=== PATIENT | female | born 1970 | race Caucasian/White ===

== ENCOUNTER 2017-02-13 22:29 | Inpatient (IN) | payer OTHER ==
[~2017-02-13] VITALS: Ht 167.6 cm; Wt 73.7 kg
[2017-02-13 22:29] VITALS: BP 110/59; PULSE 73; RESP 16
--- NOTE | 2017-02-13 22:36 | ED.REPORT ---
HPI-Chest Pain 40 and Over Date of Service Feb 13, 2017 ED Provider: Ernie PrabhakarO. A 46 year old female with a history of anxiety and microscopic colitis presents to the ED via EMS with substernal chest pain onset one hour ago. The pain is described as "pressure" and "aching," rated 7/10 with radiation up to her jaw. Associated symptoms include nausea, diaphoresis, and SOB which has since resolved. The patient denies other symptoms. EMS found the patient with a BP of 111/69 and a pulse in the 70s. She was given Nitro x3 and 324mg ASA en route, which reduced her pain to a 3/10. Nursing Notes Stated Complaint: CHEST PRESSURE Chief Complaint: Chest Pain Nursing Notes Reviewed: Yes Allergies: Coded Allergies: Sulfa (Sulfonamide Antibiotics) (Verified Allergy, Unknown, Lip swelling, 02/13/17) General Time Seen by MD: 22:36 Chief Complaint Chest pain Hx Obtained From: Patient Arrived By: Ambulance Sudden in Onset?: Yes Onset Occurred: 1 - 4 hours ago Symptom Duration: Since onset Location: : Substernal Quality: Aching, Painful, Pressure Radiation: : Jaw Severity: Current: Pain level 7 out of 10 Severity: Maximum: Pain level 3 out of 10 Relieved by: Nitroglycerin - EMS x 3, OTC medications Recent Healthcare: No recent doctor visit Similar Sx Previous: No Past Medical History Past Medical History Microscopic colitis Anxiety Family History Father CABG at 74 years old Smoking History Former Smoker Social History Other Social History: Good social support, Lives with children Ambulatory Status Independent Review of Systems Review of Systems Note: + Jaw pain Constitutional: Denies: Fever Respiratory: Reports: Shortness of breath (Resolved), Denies: Non-productive cough Cardiovascular: Reports: Chest pain GI: Reports: Nausea, Denies: Diarrhea, Vomiting Skin: Reports Diaphoresis Complete sys rev & neg: except as marked. Physical Exam Initial Vital Signs Vital Signs (First) Date Time Temp Pulse Resp B/P Pulse Ox O2 Delivery O2 Flow Rate FiO2 02/13/17 22:29 36.9 73 16 110/59 Room Air 02/13/17 23:33 69 Initial VS: Reviewed Head / Eyes: Atraumatic, Normocephalic ENT: Conjunctiva normal, No scleral icterus Neck: Supple, Full range of motion Skin: Warm, Dry, No cyanosis Neurologic: Alert, Oriented, Nonfocal Psychiatric: Mood/affect normal, Behavior normal, Normal thought content General/Constitutional: Awake, Alert Respiratory / Chest: Breath sounds NL, Breath sounds = bilat, No respiratory distress Cardiovascular: Heart rate NL, Regular rhythm, Heart sounds NL Abdomen: Soft, Non-tender Rectal exam by Dr. Mtz. Result: Brown stool, heme negative. Lower Extremity / Pelvis / MS: No swelling, No edema Rectum / Perineum: Blood - occult heme -, No gross blood Interpretation & Diagnostics Lab Results Interpretation Result Diagram: 02/13/17222902/13/172229 Test 02/13/17 22:30 White Blood Count 11.8th/mm3 (3.8-10.1) Red Blood Count 4.20mil/mm3 (3.90-5.20) Hemoglobin 12.8g/dL (12.0-15.6) Hematocrit 38.5% (35.0-46.0) Mean Corpuscular Volume 91.7fL (81-100) Mean Corpuscular Hemoglobin 30.5pg (27.0-35.0) Mean Corpuscular Hemoglobin Concent 33.2% (32.0-37.0) Red Cell Distribution Width 12.3% (12.3-15.4) Platelet Count 309bil/L (150-400) Neutrophils (%) (Auto) 46.6% (40-74) Lymphocytes (%) (Auto) 35.6% (14-46) Monocytes (%) (Auto) 13.2% (4-12) Eosinophils (%) (Auto) 3.6% (0-5) Basophils (%) (Auto) 0.7% (0-3) Hold Purple Top Tube Received (Received) Activated Partial Thromboplast Time 25.5sec (22.8-33.0) Hold Blue Top Tube Received (Received) Total Bilirubin 0.2mg/dL (0.0-1.2) Aspartate Amino Transf (AST/SGOT) 23U/L (0-50) Alanine Aminotransferase (ALT/SGPT) 33U/L (0-32) Alkaline Phosphatase 58U/L (25-150) Total Protein 6.8g/dL (6.4-8.4) Albumin 4.4g/dL (3.4-5.0) Hold Red Top Tube Received (Received) Hold [place] Top Tube Received (Received) ECG Interpretation ECG Interpretation: Sinus rhythm rate 71 Time: 22:36 Interpreted by: ED physician ECG Interpretation: Sinus rhythm rate 69 No change No ischemic change Time: 00:31 Interpreted by: ED physician ECG Interpretation: Normal sinus rhythm, Rate 79. No acute ST changes. Time: 01:36 Interpreted by: ED physician X-Ray Chest Interpretation Chest Xray Interpretation: Normal x-ray View: Portable, 1 view Interpretation / Wet Read by: Wet read ED physician Re-Eval/Medical Decision Med Decision/Clinical Course HEART SCORE 3 This patient was sent out to me by Dr. Reveles pending her repeat troponin. Her second troponin came back elevated. Patient was pain-free for most of her time here but did develop some chest pain prior to my evaluation. She is given nitroglycerin and start on heparin, there are no acute EKG changes and her chest pain resolved. The patient will be admitted for her NSTEMI for further evaluation. Time of Eval: 23:56 Patient Status: Condition improved Re-Evaluation/Progress Note: Patient's pain has improved. Discussed with patient x-ray and lab results, diagnosis, and plan for discharge if repeat labs are normal. Follow-up and return to the ER instructions given. Patient agrees with plan for care and all questions were addressed. Time of Eval: 01:06 Patient Status: Condition improved Re-Evaluation/Progress Note: Pt rechecked by Dr. Mtz. Pt reported melena "on and off" for the last two days so a rectal exam was performed. Result: Brown stool, heme negative. She reports mild pain returned a few minutes ago, rate 1/10. Informed pt of need for admission. Pt understands and agrees with the plan for admission. All questions addressed. Time of Eval: 01:45 Re-Evaluation/Progress Note: Patient is now chest pain free. Consultation : Referral / Consult Name: Kike Salinas MD Consulted With: Hospitalist Call Returned at: 01:55 Meter Repairer: Will see patient, Agrees with eval, Agrees with plan, Accepts admit Counseled Regarding: Diagnosis, Lab results, Need for admission Discharge & Departure Primary Impression: NSTEMI (non-ST elevated myocardial infarction) Additional Impressions: Chest pain Chest pain type: unspecified Qualified Code: R07.9 - Chest pain, unspecified Elevated troponin Disposition: ADMITTED TO HOSPITAL Discharge Condition All VS Reviewed: Yes Condition: Stable Referrals: [facility] Care Transferred to: Dr Mtz Care Transferred at: 01:00 Scribe Attestation Portions of this note were transcribed by Michelle Orantes, and Tonny Bautista. I, Dr. Rodriguez and Dr. Mtz, personally performed the history , physical exam, and medical decision-making; I reviewed and confirmed the accuracy of the information in the transcribed note. Signed by: Michelle Orantes, and Tonny Bautista , Flex, 02/14/2017, 0183 copies to: [facility] Rich Rodriguez DO Feb 13, 2017 22:36 ARMINDA JOHNSTON Feb 13, 2017 22:46 Tonny Bautista Feb 14, 2017 01:11 Michelle Nelson Feb 14, 2017 02:01 Emiila Mtz MD Feb 14, 2017 04:02 Time of Eval: 23:56 Patient Status: Condition improved Re-Evaluation/Progress Note: Patient's pain has improved. Discussed with patient x-ray and lab results, diagnosis, and plan for discharge if repeat labs are normal. Follow-up and return to the ER instructions given. Patient agrees with plan for care and all questions were addressed. Time of Eval: 01:06 Patient Status: Condition improved Re-Evaluation/Progress Note: Pt rechecked by Dr. Mtz. Pt reported melena "on and off" for the last two days so a rectal exam was performed. Result: Brown stool, heme negative. She reports mild pain returned a few minutes ago, rate 1/10. Informed pt of need for admission. Pt understands and agrees with the plan for admission. All questions addressed. Time of Eval: 01:45 Re-Evaluation/Progress Note: Patient is now chest pain free. Consultation : Referral / Consult Name: Kike Salinas MD Consulted With: Hospitalist Call Returned at: 01:55 Meter Repairer: Will see patient, Agrees with eval, Agrees with plan, Accepts admit Counseled Regarding: Diagnosis, Lab results, Need for admission Discharge & Departure Primary Impression: NSTEMI (non-ST elevated myocardial infarction) Additional Impressions: Chest pain Chest pain type: unspecified Qualified Code: R07.9 - Chest pain, unspecified Elevated troponin Disposition: ADMITTED TO HOSPITAL Discharge Condition All VS Reviewed: Yes Condition: Stable Referrals: [facility] Scribe Attestation Portions of this note were transcribed by Mcihelle Orantes, and Tonny Bautista. I, Dr. Rodriguez and Dr. Mtz, personally performed the history , physical exam, and medical decision-making; I reviewed and confirmed the accuracy of the information in the transcribed note. Signed by: Arminda Johnston, Michelle Nelson, and Flex Torres, 02/14/2017, [id number] copies to: [facility] Rich Rodriguez DO Feb 13, 2017 22:36 ARMINDA JOHNSTON Feb 13, 2017 22:46 Tonny Bautista Feb 14, 2017 01:11 Michelle Nelson Feb 14, 2017 02:01 copies to: [facility] Rich Rodriguez DO Feb 13, 2017 22:36 ARMINDA JOHNSTON Feb 13, 2017 22:46 Tonny Bautista Feb 14, 2017 01:11 Michelle Nelson Feb 14, 2017 02:01
[2017-02-13 22:42] LABS: BASOPHILS % (AUTO) 0.7 % (0-3); EOSINOPHILS % (AUTO) 3.6 % (0-5); MONOCYTES % (AUTO) 13.2 % (4-12); Mean Corpuscular Hemoglobin 30.5 pg (27.0-35.0); Mean Corpuscular Volume 91.7 fL (81-100); NEUTROPHILS % (AUTO) 46.6 % (40-74); Platelet Count 309 bil/L (150-400)
[2017-02-13] MEDS ORDERED: LidocaineVisc 2%:Antacid 1:1 10 mL Syringe PO SCH (22:45)
[2017-02-13 23:02] LABS: TROPONIN T 0.01 ug/L (0.0-0.011)
[2017-02-13 23:13] LABS: Magnesium 1.7 mg/dL (1.6-2.6)
[2017-02-13 23:33] VITALS: BP 106/63; PULSE 69; RESP 18; O2SAT 69
[2017-02-13] MEDS: Ondansetron 2 mg/mL 2 mL Inj IVPUSH PRN (23:33)
[2017-02-14] VITALS (12 sets, daily range): BP systolic 97–120; BP diastolic 56–72; PULSE 68–89; RESP 17–22; O2SAT 96–99
[2017-02-14] MEDS ORDERED: Nitroglycerin 2% 1 Gm Ointment TOPICAL ONE ×2 (01:05→01:10)
[2017-02-14] MEDS ORDERED: Heparin 25K Unit/500mL 0.45 NS 25,000 UNIT in IV Premix 1 EACH IV ONE (01:05)
[2017-02-14] MEDS ORDERED: Heparin 5,000 Unit/mL Inj IVPUSH ONE (01:05)
[2017-02-14] MEDS ORDERED: 0.9% Sodium Chloride 1,000 ML IV ONE ×2 (01:10→10:40)
[2017-02-14] MEDS ORDERED: Potassium Chloride 20 mEq SR Tablet PO ONE (02:00)
[2017-02-14] MEDS ORDERED: Polyethylene Glycol (PEG) 17 Gm Powder PO PRN (02:20)
[2017-02-14] MEDS ORDERED: Senna-Docusate 8.6-50 mg Tablet PO PRN (02:20)
[2017-02-14] MEDS ORDERED: Alum-Mag Hydrox-Simeth 30 mL Suspension PO PRN (02:20)
[2017-02-14] MEDS ORDERED: Atropine 1 mg/10 mL (Code) Syringe IVPUSH PRN (02:20)
[2017-02-14] MEDS: 0.9% Sodium Chloride 1,000 ML IV SCH ×2 (03:30→13:04)
[2017-02-14 04:19] LABS: Magnesium 1.8 mg/dL (1.6-2.6)
--- NOTE | 2017-02-14 04:40 | PCM.HPMED ---
Subjective Date of Service Feb 14, 2017 Primary Provider: Admitting Physician: Kike Salinas MD Primary Care Physician: Wendy Castellanos Attending Physician: Kike Salinas MD Admit Status: From the Emergency Department Chief Complaint: Chest Pain History of Present Illness: 46yo woman with history of microscopic colitis, chronic diarrhea, significant intentional weight loss, distant smoking hx, presented to the ED via EMS with substernal chest pain onset at about 9pm. The pain is described as "pressure" and "aching," rated 7/10 with radiation up to her jaw. Associated symptoms included nausea, diaphoresis, and SOB which have since resolved. EMS found the patient with a BP of 111/69 and a pulse in the 70s. She was given Nitro x3 and 324mg ASA en route, which reduced her pain to a 3/10. At time of admit her pain had resolved to minor chest pressure and a headache. Review of Systems: Complete ROS is otherwise negative except as noted above in the HPI. Allergies Coded Allergies: Sulfa (Sulfonamide Antibiotics) (Verified Allergy, Unknown, Lip swelling, 02/13/17) Home Medications Med Rec not completed at time of admission. PMH Microscopic Colitis chronic diarrhea Obesity (resolved) Smoking Anxiety Depression Insomnia Surgical History Breast implants D and C Family History Father has CAD and is scheduled for a CABG in the near future Mother is a colon cancer survivor Social History Hx Alcohol Use: Yes Alcoholic Drinks Per Day: 4 GLASSES OF ON WEEKENDS Hx Substance Use: No Smoking Status: Former Smoker (quit 7 years ago) Exam Vital Signs Vital Sign - Last Date Time Temp Pulse Resp B/P Pulse Ox O2 Delivery O2 Flow Rate FiO2 02/14/17 03:20 76 02/14/17 02:26 113/68 02/14/17 02:06 22 96 Room Air 02/13/17 22:29 36.9 Intake and Output 02/13/17 02/13/17 02/14/17 Cumulative From/Thru 15:00 23:00 07:00 02/13/17 22:29 - 02/14/17 03:12 Intake Total 1000 ml 1000 ml Balance 1000 ml 1000 ml Intake IV Total 1000 ml 1000 ml Exam General: Alert, Oriented X3, Cooperative, No Acute Distress Head: Normocephalic, atraumatic. External ears normal. Eyes: PERRLA, EOMI. Anicteric sclerae. Mouth: Mouth Normal, Mucous Membranes Moist/[place] Neck: Neck supple with full range of motion. Chest & Lungs: Clear to auscultation bilaterally with no crackles, wheezes, or rhonchi. Cardiovascular: Regular Rate/Rhythm, Normal S1, Normal S2, No Murmurs/Rubs/ Gallops Abdomen: Non-tender, Non-distended, No masses, Normoactive bowel tones, Soft Musculoskeletal: Normal Range of Motion Extremities: No cyanosis/clubbing/edema bilaterally Neurological: Grossly Neurologically Intact, Cranial Nerves 2-12 Intact, Normal Speech Lab and Diagnostics Labs Laboratory Tests Test 02/13/17 22:30 02/14/17 00:10 02/14/17 03:02 White Blood Count 11.8th/mm3 (3.8-10.1) Red Blood Count 4.20mil/mm3 (3.90-5.20) Hemoglobin 12.8g/dL (12.0-15.6) Hematocrit 38.5% (35.0-46.0) Mean Corpuscular Volume 91.7fL (81-100) Mean Corpuscular Hemoglobin 30.5pg (27.0-35.0) Mean Corpuscular Hemoglobin Concent 33.2% (32.0-37.0) Red Cell Distribution Width 12.3% (12.3-15.4) Platelet Count 309bil/L (150-400) Neutrophils (%) (Auto) 46.6% (40-74) Lymphocytes (%) (Auto) 35.6% (14-46) Monocytes (%) (Auto) 13.2% (4-12) Eosinophils (%) (Auto) 3.6% (0-5) Basophils (%) (Auto) 0.7% (0-3) Hold Purple Top Tube Received (Received) Activated Partial Thromboplast Time 25.5sec (22.8-33.0) Hold Blue Top Tube Received (Received) Sodium Level 138mEq/L (134-144) 139mEq/L (134-144) Potassium Level 3.1mEq/L (3.5-5.2) 3.7mEq/L (3.5-5.2) Chloride Level 98mEq/L (97-108) 101mEq/L (97-108) Carbon Dioxide Level 24mmol/L (18-29) 24mmol/L (18-29) Blood Urea Nitrogen 20mg/dL (6-24) 17mg/dL (6-24) Creatinine 0.72mg/dL (0.57-1.00) 0.61mg/dL (0.57-1.00) Estimat Glomerular Filtration Rate 124mL/min (>59) 151mL/min (>59) Glucose Level 94mg/dL (60-99) 99mg/dL (60-99) Calcium Level 8.8mg/dL (8.5-10.1) 7.4mg/dL (8.5-10.1) Magnesium Level 1.7mg/dL (1.6-2.6) 1.8mg/dL (1.6-2.6) Total Bilirubin 0.2mg/dL (0.0-1.2) Aspartate Amino Transf (AST/SGOT) 23U/L (0-50) Alanine Aminotransferase (ALT/SGPT) 33U/L (0-32) Alkaline Phosphatase 58U/L (25-150) Troponin T 0.010ug/L (0.0-0.011) 0.309ug/L (0.0-0.011) 0.505ug/L (0.0-0.011) Total Protein 6.8g/dL (6.4-8.4) Albumin 4.4g/dL (3.4-5.0) Hold Red Top Tube Received (Received) Hold [place] Top Tube Received (Received) Thyroid Stimulating Hormone (TSH) 1.870uIU/mL (0.450-4.500) Result Diagram: 02/13/170 02/14/17 0302 X-Rays, CTs and MRIs CXR reveals no acute cardiopulmonary process 12-lead ECG EKG x2 reveals NSR without ST changes or any other signs of ischemia, rate of 79 Assessment & Plan 46yo woman with history of microscopic colitis, chronic diarrhea, significant intentional weight loss, distant smoking hx, presented to the ED via EMS with substernal chest pain onset at about 9pm. The pain is described as "pressure" and "aching," rated 7/10 with radiation up to her jaw. Associated symptoms included nausea, diaphoresis, and SOB which have since resolved. EMS found the patient with a BP of 111/69 and a pulse in the 70s. She was given Nitro x3 and 324mg ASA en route, which reduced her pain to a 3/10. EKG x2 were NSR without ischemic changes. At time of admit her pain had resolved to minor chest pressure and a headache. 1. NSTEMI, POA, with rising troponin, 0.010 to 0.309 to 0.505, nml EKGs, pain resolved with nitroglycerin. SUSAN score is 2, but elements of her history push it towards a 3: father has CAD, she was a smoker for several years, she used to have hyperlipidemia, but does report healthy levels for several years after losing considerable weight. -Cardiology consult ordered, please call Dr Conner, anticipating possible catheterization -Telemetry -Heparin drip, cardiac protocol -Metoprolol 25mg PO given once at 0315 -Atorvastatin 80mg PO given once at 0315 -Nitrostat and Morphine PRN -NPO -NS 80mls/hr IV 2. Headache, POA, likely secondary to Nitropaste -improved with Tylenol 650mg PO 3. Chronic Diarrhea, POA, stable, patient is followed closely by a GI doctor in [place] for her microscopic collitis. She did report possible melena in the ER, but heme occult test was negative. 4. Hypokalemia, POA, repleted once in the ED with 40meq PO, second lab in normal limits, 3.7 -K/Mg repletion protocol in place PRN medications available for nausea, heartburn, constipation: Ondansetron, Maalox, Senna, Miralax Patient is admitted under inpatient status with expected length of stay greater than 2 midnights due to severity of presenting symptoms, risk of adverse event, and complexity of treatment plan. Pain Evaluation: Adequate Pain Control GI Prophylaxis: Not indicated VTE Prophylaxis: SCDs, Other (Heparin drip, cardiac protocol) Resuscitation Status: CPR: Attempt Resuscitation Attending Statement The patient was seen and examined together with Dr. Bravo on 02/14 and I agree with the history, exam and plan as outlined in the note above. Franki Bravo DO Feb 14, 2017 04:40 Kike Salinas MD Feb 14, 2017 05:24
--- NOTE | 2017-02-14 06:12 | NUR ---
Admit note: Pt received into 2013 at 0245 per cart from ED. Pt was able to stand and step onto scale. denies any SOB or chest pressure or pain does c/o headache. Heparin gtt infusing per cardiac protocol. Pt was given tylenol for headache. Tele shows sinus rhythm.
[2017-02-14] MEDS: Ondansetron 2 mg/mL 2 mL Inj IVPUSH PRN ×3 (07:31→08:42)
[2017-02-14] MEDS: Sodium Chloride LOK Flush 10 mL Syringe IVFLUSH SCH ×5 (08:43→22:15)
[2017-02-14] MEDS ORDERED: ProchlorPERazine 5 mg/mL 2 mL Inj IVPUSH ONE (09:10)
--- NOTE | 2017-02-14 09:10 | DRSVH ---
PROCEDURE: X-RAY CHEST ONE VIEW, PORTABLE ([id number]) INDICATIONS: chest pressure, radiates to back and jaw TECHNIQUE: One view of the chest was acquired. COMPARISON: None. FINDINGS: Surgical changes and devices: None. Lungs and pleura: No pleural effusions or pneumothorax. Lungs are clear. Mediastinum: Mediastinal contours appear normal. Heart size is normal. Bones and chest wall: No suspicious bony lesions. Overlying soft tissues appear unremarkable. IMPRESSION: No acute cardiopulmonary disease. Dictated by: Ortega Mata [facility] Interpreted: Cherry Eli MD on 02/14/2017 at 9:09 Transcribed by: ADRIÁN on 02/14/2017 at 9:09 Approved by: Cherry Eli MD, PhD on 02/14/2017 at 11:27
[2017-02-14] MEDS ORDERED: Heparin 25K Unit/500mL 0.45 NS 25,000 UNIT in IV Premix 1 EACH IV SCH (10:15)
--- NOTE | 2017-02-14 12:42 | DRSVH ---
[facility] [address] [place] [address] Echocardiogram Report Name: VERITO PIERRE LStudy Date: 02/14/2017 Height: 66 in Hospital Exam Location: [facility] Weight: 160 lb Gender: Female BSA: 1.8 m2 : 1970 Age: 46 yrs BP: 107/72 mmHg Reason For Study: NSTEMI Ordering Physician: HOSPITALIST [facility] Performed By: Sixto Carlin Referring Physician: GREG Castellanos Interpretation Summary 1. Normal left ventricular size, wall thickness and systolic function with an estimated EF of 60-65% with wall motion abnormalities as noted below. 2. Normal right ventricular size and systolic fucntion. 3. No evidence for valvular pathology No old study for comparison Procedure: A two-dimensional transthoracic echocardiogram with color flow and Doppler was performed. The study quality was technically good. There is no prior echocardiogram noted for this patient. The patient was in normal sinus rhythm during the exam. Left Ventricle: The left ventricle is normal in size. There is normal left ventricular wall thickness. The ejection fraction is estimated to be 60-65%. Possible hypokinesis of the distal lateral/inferolateral wall. Right Ventricle: The right ventricle is normal in size and function. Atria: Both atria are normal in size. The interatrial septum is intact with no evidence for an atrial septal defect. Mitral Valve: The mitral valve is normal in structure and function. There is trace mitral regurgitation. Aortic Valve: The aortic valve is trileaflet. The aortic valve opens well. No aortic regurgitation is present. Tricuspid Valve: The tricuspid valve leaflets are thin and pliable. There is trace tricuspid regurgitation. The right ventricular systolic pressure is estimated at 29 mmHg assuming a right atrial pressure of 8 mm Hg. Pulmonic Valve: The pulmonic valve is normal in structure and function. There is trace pulmonic regurgitation. Great Vessels: The aortic root is normal size. The dimensions of the ascending aorta are normal. The pulmonary artery is normal size. The IVC is dilated (diameter is greater than 2.1 cm) yet it collapses greater than 50% with a sniff. This suggests a right atrial pressure of 8 mm Hg. Pericardium/ Pleura There is no pericardial effusion. Trivial pericardial fluid. There is no pleural effusion. MMode/2D Measurements & Calculations LVIDd: 4.3 cm RA long axis LVOT diam: 2.0 cm LVIDs: 2.7 cm LA A2 area: 17.5 cm AoV Opening FS: 36.4 % LA A4 area: 21.1 cm RA area EPSS: 0.26 cm LA length (vol) Ao root diam IVSd: 0.74 cm : 12.4 cm LVPWd: 0.71 cm LA vol: 60.9 ml RA vol asc Aorta Diam LA vol index : 31.6 ml RA Ao Arch Diam (Prox : 17.4 mm2 Trans): 2.7 cm IVC diam: 2.7 cm LV guzman. diameter/BSA LV sys. diameter/BSA (cm/m^2): 2.4 (cm/m^2): 1.5 Doppler Measurements & Calculations Ao V2 max MV E max facundo MV E/A: 0.90 TR max facundo : 149.5 cm/sec : 86.6 cm/sec Med Peak E' Facundo : 227.7 cm/sec Ao max PG MV A max facundo TR max P.7 mmHg : 8.9 mmHg : 96.4 cm/sec E/E' med: 8.1 PA V2 max: 80.9 cm/sec Ao mean PG Pulm A Revs Dur PA mean P.6 mmHg : 5.4 mmHg PA Accel Time: 0.14 sec MV A dur: 0.11 sec MV dec time Ao V2 mean PA V2 mean Pulm A Revs Dur - MV A : 0.16 sec : 110.5 cm/sec : 60.4 cm/sec Dur: -0.01 msec Ao V2 VTI : 32.8 cm Reading Physician:12:41 PM
--- NOTE | 2017-02-14 13:23 | CONS ---
[address] [address] CONSULTATION REPORT PATIENT: VERITO PIERRE : 1969 MR#: [id number] ADMIT: 02/14/2017 JOB ID: [id number] CARDIOLOGY CONSULTATION NOTE-INITIAL INPATIENT EVALUATION: DATE OF EVALUATION: Tuesday, February 14, 2017. CONSULTING PHYSICIAN: Cardiology--Júnior Smith M.D. PROBLEMS: 1. ACUTE CORONARY SYNDROME (ACS): a. Chest Pain--Presenting with 1 hour of severe retrosternal pressure radiating to the back. b. NSTEMI--Non ST elevation myocardial infarction; with troponin initially normal; then elevated to 0.505. c. ECG-- Not outside normal limits (possible subtle inferolateral ST flattening). CAD risk factors: a. No history of diabetes. b. No history of hypertension. c. Hyperlipidemia--History of high cholesterol in the past; but not treated; and reported to be resolved after 60 pound weight loss. 4. Family history of premature vascular disease--father had a stroke in his mid 50s; and currently pending CAB at 74 years old. 5. Cigarettes-- Prior smoker two packs a day; stopped seven years ago; without sequelae of or symptoms of COPD or chronic bronchitis. OTHER PROBLEMS: 1. Prior obesity--voluntary 60 pound weight loss. 2. Microscopic Colitis--manifested primarily as diarrhea. CHIEF COMPLAINT: 1. Chest pain. 2. Elevated troponin. HISTORY OF PRESENT ILLNESS: PRESENTATION: I am glad to meet this 46-year-old woman along with her in the PCU unit after she was admitted yesterday evening, now 12 hours ago. She was healthy prior to that time without a history of heart disease (except history of Echo and told to have mitral prolapse in the past). She is vigorously active including "Dannielle" workouts which are vigorous aerobic dancing. She has no effort limitation and no effort-related symptoms--except she notes mild-to- moderate exertional dyspnea that she attributes to moving to this area from [place] where it is flat; and now cannot keep up with her partners while hiking on hills. Last night, some hours after a vigorous, but uneventful aerobic workout, she was unloading the oxygraph operator and noted the sudden onset of severe--7 intensity on a scale of 10--retrosternal chest pressure. Her 17-year-old daughter felt she looked short of breath. She was uncomfortable enough to call 911. The ambulance is said to have seen inferior ST depression. The chest discomfort lasted an hour until the emergency department where it was relieved by Morphine. In the ambulance initially, nitroglycerin had reduced the pain to 3/10 intensity but did not eliminate it. She noted associated "cold sweat." Also she noted the pain radiated to her right scapular area; and she endorses that it may have had a somewhat "ripping/ tearing" quality. She had a subsequent very mild half hour episode at rest this morning at 6:30AM ; did not tell the nurse; and it was relieved spontaneously. Regarding consideration of aortic dissection, she has not been hypertensive. Regarding considerations of PE, she did have a long drive to [place] this past weekend but has no lower extremity symptoms suggestive of thrombophlebitis. Regarding underlying heart failure, she has no symptoms of heart failure other than her chronic dyspnea; and she has no nocturnal dyspnea or edema. Regarding arrhythmia, she has no history of arrhythmia and no current symptoms of arrhythmia, including tachy palpitation, presyncope or syncope. Regarding other possible underlying vascular disease, she has no history of CVA or current symptoms of TIA. No claudication. Regarding possible dual antiplatelet therapy, she has no current bleeding symptoms; stool guaiac in the ED said to be negative; she considers herself reliable to take mandatory medicines; and has no anticipated upcoming surgery. ALLERGIES: The record indicates allergy to SULFA. I elicit no allergy to medical contrast or to seafood, fish, iodine or shellfish. MEDICATIONS: Home medications include: 1. Klonopin for anxiety. 2. Escitalopram. 3. Not aspirin. 4. Estrogen for several months that was stopped several months ago(used for menopausal symptoms). 5. Others not specified. PAST MEDICAL HISTORY: History of "microscopic colitis": She has had colonoscopy for this; but no other medical complications reported. REVIEW OF SYSTEMS: I questioned her and her about a 13 point review of systems which is unremarkable, noncontributory, or negative except as noted including: Thyroid--History of thyroid nodules without further treatment. Pulmonary--No history of asthma or wheezing or symptoms of chronic bronchitis. GI--No other GI symptoms of ulcer, hepatitis or jaundice. Rare mild indigestion. PERSONAL AND SOCIAL HISTORY: Cigarettes--She smoked two packs a day from age [age]. Alcohol--She reports she does not use much alcohol. Family--She has a young adult stepson; a 17-year-old daughter and her is present. FAMILY HISTORY: Not further contributory. EXAMINATION: General appearance: Pleasant, middle-aged woman who is comfortable at rest. VITAL SIGNS: Blood pressure 107/72 with heart rate 86, regular in sinus rhythm on telemetry. Afebrile. Respiratory rate 20 and unlabored. O2 saturation 98% on room air. Weight 72.5 kg. NEUROLOGIC AND MENTAL STATUS: No overt focal neurologic defect noted. She is alert, oriented, appropriate and conversant. HEENT : PERRL. Conjunctivae pink. Sclerae not icteric. Mouth and mucous membranes intact. NECK: Carotid upstroke intact bilaterally without bruit. JVP normal. No palpable thyromegaly; I cannot palpate any nodules. No cervical lymphadenopathy. LUNGS: Clear to auscultation bilaterally including with forced expiratory maneuver. CARDIAC: No chest wall tenderness. Examination notable for regular rhythm. She does have a clear mid systolic click of mitral valve prolapse but no murmur; and no definite change with squeezing her fists. ABDOMEN: Unremarkable without tenderness, mass, hepatosplenomegaly or bruit of abdominal aortic aneurysm. EXTREMITIES: No edema. Pedal pulses intact bilaterally. DIAGNOSTIC STUDIES: ELECTROCARDIOGRAM: I reviewed the three hospital ECGs; but the ECG from EMS is not available. They show sinus rhythm at 76 BPM and not definitely outside normal limits; but there is a hint of subtle ST flattening inferolaterally that is nonspecific and nondiagnostic. CHEST X-RAY: The chest x-ray film is unremarkable from a cardiovascular point of view with no cardiomegaly and no mediastinal widening and no heart failure. LABORATORY: CBC includes WBC 11,800 with hemoglobin 12.8, hematocrit 38.5, normal indices, and platelet count 309,000. Chemistries include potassium 3.7 (initially 3.1); with creatinine 0.61. BUN 17, glucose 99. Lipid panel includes LDL 109 with total cholesterol 173 and HDL 57. TSH 1.87. Cardiac markers include troponin less than 0.10; then 0.309, then 0.505, then 0.272. ASSESSMENT: I discussed the findings, impressions and management considerations with the patient and her ; and with the Hospitalist staff includin. Acute coronary syndrome with chest pain, elevated troponin but no definite ECG changes: I discussed with them the impression of high likelihood of underlying coronary disease despite her young age. Including because of the unremarkable ECG, we also considered PE and aortic dissection (note she took estrogens for menopausal symptoms for some months until several months ago)--both of which seem unlikely but can be considered. I discussed the recommendation for a "double rule out" CT of the chest and Echocardiogram, then to proceed to cardiac catheterization for definitive diagnosis and to guide treatment decisions including medical therapy, anticipated percutaneous coronary intervention; or coronary bypass surgery if needed. 2. Exam c/w Mitral Prolapse(Definite Mid systolic Click) RECOMMENDATIONS: 1. Cardiac Catheterization. 2. Echocardiogram. 3. CT Chest--Rule out pulmonary embolism; and rule out aortic dissection. 4. test. 5. OMT-optimal guideline directed medical therapy for coronary artery disease and CAD risk factors including aspirin, statin, beta-rosalia, IV heparin; and Plavix was ordered but not given (can be held at present ). 6. Your plan regarding her severe nausea this morning. MTDD
--- NOTE | 2017-02-14 14:02 | DRSVH ---
PROCEDURE: CT ANGIO CHEST PULMONARY EMBOLISM ([id number]) INDICATIONS: chest pain TECHNIQUE: After the administration of intravenous contrast, 2 mm thick sections acquired from the pulmonary api rubio to the posterior costophrenic angles. 3-dimensional maximum intensity projection (MIP) coronal a nd sagittal reformats were then acquired through the thorax. For radiation dose reduction, the follo wing was used: automated exposure control, adjustment of mA and/or kV according to patient size. COMPARISON: None. FINDINGS: Image quality: Excellent. Pulmonary arteries: Pulmonary arteries are normal in size, and demonstrate no intraluminal filling d efects to suggest central pulmonary embolism. Lungs and pleura: Mild dependent bilateral lower lobe atelectasis is present. A 3 mm diameter nodule within the left upper lobe laterally is present. Lungs are otherwise clear. An azygos fissure is pre sent. No pleural effusions or pneumothorax. Central and peripheral airways are patent. Mediastinum: Heart size is normal, without pericardial effusion. No mediastinal or hilar adenopathy . Thoracic aorta is normal in caliber and enhancement. Esophagus is normal in caliber, without hiat al hernia. Bones and chest wall: Bilateral breast implants are present. No suspicious bony lesions. Ribs and t horacic spine appear intact throughout. Thyroid gland is within normal limits. No axillary or supra clavicular adenopathy. Abdomen: Visualized upper abdominal solid organs appear normal in the early arterial phase of enhanc ement. IMPRESSION: 1. No pulmonary embolus. 2. No acute process. 3. 3 mm diameter left upper lobe nodule; followup is recommended as below. Fleischner Society criteria for SOLID lung nodule followup. Nodule size (mm)Low-risk patientHigh-risk patient<6 (single or multiple)No routine followup.Optional CT at 12 months. 6-8 (single or multiple)CT at 6-12 months, then optional CT at 18-24 mo.CT at 6-12 m onths, then CT at 18-24 months. >8 (single)CT, PET-CT, or biopsy at 3 months. Same as for low-risk p ts. >8 (multiple)CT at 3-6 months, then optional CT at 18-24 mo.CT at 3-6 months, then CT at 18-24 m onths. Recommendations do not apply to lung cancer screening, patients with immunosuppression, or patients w ith known primary cancer. Dictated by: Wojciech Argueta M.D. on 02/14/2017 at 13:56 Approved by: Wojciech Argueta M.D. on 02/14/2017 at 14:00
--- NOTE | 2017-02-14 15:07 | NUR ---
Social Work- Brief Note Data: EMR reviewed. Pt is a 46 year old female admitted 02/14/17 for NSTEMI per H&P. Pt's insurance is [employer] and PCP is Wendy Castellanos PA-C. SW met with pt at bedside regarding discharge plan, SW role explained. Pt alert and oriented x3. Pt resides in [place] with her and 17 year old daughter where she remains independent at base. Pt uses no DME, is very active with her family. Pt has no listed DPOA, declined further information/paperwork regarding this. Pt to discharge home with to transport via POV. No anticipated discharge needs. SW will continue to follow. Assessment: Pt who is independent [place] base. Plan: Pt to discharge home with to transport. No anticipated discharge needs. SW will continue to follow. BRIAN Becker
--- NOTE | 2017-02-14 16:36 | PCM.PNMED ---
Subjective Date of Service Feb 14, 2017 Subjective 46-year-old generally healthy woman presents with NonST elevation WI. No recurrent chest pain. Experience significant headache and nausea from nitrates. Exam Vital Signs Vital Sign - Last Date Time Temp Pulse Resp B/P Pulse Ox O2 Delivery O2 Flow Rate FiO2 02/14/17 16:13 36.4 80 97/65 97 Room Air 02/14/17 12:04 19 Intake and Output 02/13/17 02/13/17 02/14/17 Cumulative From/Thru 15:00 23:00 07:00 02/13/17 22:29 - 02/14/17 06:18 Intake Total 1000 ml 1000 ml Output Total 0 ml 0 ml Balance 1000 ml 1000 ml Intake Oral 0 ml 0 ml IV Total 1000 ml 1000 ml Output Urine Total 0 ml 0 ml Exam General: The appearing woman in no acute distress HEENT: sclerae anicteric, oral mucosa moist Neck: no JVD Chest: clear to auscultation, no musculoskeletal pain with palpation Cardiac: S1S2, S1 is split, no murmur Abdomen: BS normal, non-tender Extremities: No edema Neuro: A&O, cranial nerves symmetric, motor strength 5/5, coordination normal IVs and Medications Medications Reviewed: Medications were reviewed in detail Lab and Diagnostics Result Diagram: 02/13/17 2230 02/14/17 0302 X-Rays, CTs and MRIs PROCEDURE: CT ANGIO CHEST PULMONARY EMBOLISM ([id number]) IMPRESSION: 1. No pulmonary embolus. 2. No acute process. 3. 3 mm diameter left upper lobe nodule; followup is recommended as below. Fleischner Society criteria for SOLID lung nodule followup. Nodule size (mm) Low-risk patient High-risk patient<6 (single or multiple) No routine followup. Optional CT at 12 months. Dictated by: Wojciech Argueta M.D. on 02/14/2017 at 13:56 12-lead ECG EKG x2 reveals NSR without ST changes or any other signs of ischemia, rate of 79 Cardiac Echo Impressions Echocardiogram Report Name: VERITO PIERRE Martina Study Date: 02/14/2017 Interpretation Summary 1. Normal left ventricular size, wall thickness and systolic function with an estimated EF of 60-65% with wall motion abnormalities as noted below. 2. Normal right ventricular size and systolic fucntion. 3. No evidence for valvular pathology Left Ventricle: The left ventricle is normal in size. There is normal left ventricular wall thickness. The ejection fraction is estimated to be 60-65%. Possible hypokinesis of the distal lateral/inferolateral wall. Right Ventricle: The right ventricle is normal in size and function. . Assessment & Plan 46yo woman with history of microscopic colitis, chronic diarrhea, significant intentional weight loss, distant smoking hx (28 years at 1.5 packs per day, stopped 7 years ago), presented substernal chest pain onset at rest, then p.m. on evening of admission. The pain is described as "pressure" and "aching," rated 7/10 with radiation up to her jaw. Associated symptoms included nausea, diaphoresis, and SOB. As is her first episode of these symptoms. She is ordinarily able to perform intense aerobic workouts with no chest pain. 1. NSTEMI, POA, with rising troponin, 0.010 to 0.309 to 0.505, nml EKGs, pain resolved with nitroglycerin. SUSAN score is 1-2 (troponin, possibly EKG changes) . Pulmonary embolism with cardiac strain is been ruled out. Stress cardiomyopathy is possible but seems less likely. - Heparin drip, cardiac protocol - Plavix - Aspirin - Atorvastatin 80mg PO daily at bedtime - Recurrent chest pain call cardiology then Morphine PRN - avoid nitrates due to headache and nausea - NPO after midnight for cath on 02/15 2. Headache, POA, likely secondary to Nitropaste - Resolved 3. Chronic Diarrhea, POA, stable, patient is followed closely by a GI doctor in [place] for her microscopic collitis. She did report possible melena in the ER, but heme occult test was negative. - Stable 4. Hypokalemia, POA, potassium 3.1 on admission, repleted once in the ED with 40meq PO, second lab in normal limits, 3.7 - K/Mg repletion protocol in place PRN medications available for nausea, heartburn, constipation: Ondansetron, Maalox, Senna, Miralax Patient is admitted under inpatient status with expected length of stay greater than 2 midnights due to severity of presenting symptoms, risk of adverse event, and complexity of treatment plan. GI Prophylaxis: Not indicated VTE Prophylaxis: SCDs, Other (Heparin drip, cardiac protocol) Resuscitation Status: CPR: Attempt Resuscitation Time spent 35 minutes Wagner Lee MD Feb 14, 2017 16:36
[2017-02-14] MEDS ORDERED: VARE1TAB22 PO (16:43)
[2017-02-14] MEDS ORDERED: ZOLP6.2525 PO (16:43)
[2017-02-14] MEDS ORDERED: IPRA30SP8 NASAL (16:43)
[2017-02-14] MEDS ORDERED: AMPI500C11 PO (16:43)
[2017-02-14] MEDS ORDERED: CITA20TA11 PO (16:43)
[2017-02-14] MEDS ORDERED: KLO5T PO (16:43)
--- NOTE | 2017-02-14 17:23 | NUR ---
Nausea/anxiety This AM, pt had nausea with vomiting. Gave 12mg of zofran total, pt still nauseous so notified MD who ordered PRN meds. Lorazepam effective for nausea as well as for anxiety. Denies CP, SOB. TELE SR, no ectopy. Up SBA to BSC, frequent rounding.
[2017-02-15] VITALS (17 sets, daily range): BP systolic 105–113; BP diastolic 42–71; PULSE 58–87; RESP 12–17; O2SAT 97–100
[2017-02-15] MEDS: Heparin 5,000 Unit/mL Inj IVPUSH PRN ×2 (00:26→05:12)
[2017-02-15] MEDS: 0.9% Sodium Chloride 1,000 ML IV SCH ×2 (03:57→15:49)
[2017-02-15 04:51] LABS: BASOPHILS % (AUTO) 0.6 % (0-3); EOSINOPHILS % (AUTO) 4.2 % (0-5); MONOCYTES % (AUTO) 11.1 % (4-12); Mean Corpuscular Hemoglobin 30.7 pg (27.0-35.0); Mean Corpuscular Volume 94.4 fL (81-100); NEUTROPHILS % (AUTO) 46.2 % (40-74); Platelet Count 228 bil/L (150-400)
--- NOTE | 2017-02-15 05:34 | NUR ---
P) Cardiac/Pain Pt.'s cardiac rhythm sinus with a very occasional PVC's, pedal pulses present but not very strong, lungs clear, no chest pain, no nausea or vomiting. Pt. does have a persistent headache, possibly due to earlier nitroglycerin or stress. I) Cont. to monitor, meds per 's orders. E) Resting quietly with eyes closed. Addendum: 02/15/17 at 0541 by POLO FRY RN Pt. has been NPO except for medications since 0000 this am.
[2017-02-15] MEDS: Sodium Chloride LOK Flush 10 mL Syringe IVFLUSH SCH ×6 (09:52→23:32)
[2017-02-15] MEDS ORDERED: MeTOProlol 1 mg/mL 5 mL Inj IVPUSH ONE (10:55)
--- NOTE | 2017-02-15 10:55 | PCM.PNMED ---
Subjective Date of Service Feb 15, 2017 Subjective Doing well today. No chest pain, or dyspnea. No nausea, emesis, or diaphoresis. No dyspepsia, or abdominal pain. Her pain improved dramatically with nitroglycerin. Exam Vital Signs Vital Sign - Last Date Time Temp Pulse Resp B/P Pulse Ox O2 Delivery O2 Flow Rate FiO2 02/15/17 10:30 71 02/15/17 04:32 36.8 12 110/51 99 Room Air Intake and Output 02/14/17 02/14/17 02/15/17 Cumulative From/Thru 15:00 23:00 07:00 02/13/17 22:29 - 02/15/17 06:19 Intake Total 1905 ml 1417 ml 4322 ml Output Total 1775 ml 2100 ml 3875 ml Balance 130 ml -683 ml 447 ml Intake Oral 300 ml 200 ml 500 ml IV Total 1605 ml 1217 ml 3822 ml Output Urine Total 1775 ml 2100 ml 3875 ml Exam Alert and oriented -3, no distress. Fluent speech Anicteric sclera. Lungs are clear with normal rate and effort Heart is regular without murmur gallop or rub Abdomen soft nontender, flat Extremities are free of edema. Skin is free of rash or lesions. IVs and Medications Medications Reviewed: Medications were reviewed in detail Lab and Diagnostics Result Diagram: 02/15/17 0409 02/14/17 0302 X-Rays, CTs and MRIs PROCEDURE: CT ANGIO CHEST PULMONARY EMBOLISM ([id number]) IMPRESSION: 1. No pulmonary embolus. 2. No acute process. 3. 3 mm diameter left upper lobe nodule; followup is recommended as below. Fleischner Society criteria for SOLID lung nodule followup. Nodule size (mm) Low-risk patient High-risk patient<6 (single or multiple) No routine followup. Optional CT at 12 months. Dictated by: Wojciech Argueta M.D. on 02/14/2017 at 13:56 12-lead ECG EKG x2 reveals NSR without ST changes or any other signs of ischemia, rate of 79 Cardiac Echo Impressions Echocardiogram Report Name: VERITO PIERRE Study Date: 02/14/2017 Interpretation Summary 1. Normal left ventricular size, wall thickness and systolic function with an estimated EF of 60-65% with wall motion abnormalities as noted below. 2. Normal right ventricular size and systolic fucntion. 3. No evidence for valvular pathology Left Ventricle: The left ventricle is normal in size. There is normal left ventricular wall thickness. The ejection fraction is estimated to be 60-65%. Possible hypokinesis of the distal lateral/inferolateral wall. Right Ventricle: The right ventricle is normal in size and function. . Assessment & Plan 46yo woman with history of microscopic colitis, chronic diarrhea, significant intentional weight loss, distant smoking hx (28 years at 1.5 packs per day, stopped 7 years ago), presented substernal chest pain onset at rest, then p.m. on evening of admission. The pain is described as "pressure" and "aching," rated 7/10 with radiation up to her jaw. Associated symptoms included nausea, diaphoresis, and SOB. As is her first episode of these symptoms. She is ordinarily able to perform intense aerobic workouts with no chest pain. 1. NSTEMI, POA, with rising troponin, 0.010 to 0.309 to 0.505, nml EKGs, pain resolved with nitroglycerin. SUSAN score is 1-2 (troponin, possibly EKG changes) . Pulmonary embolism with cardiac strain is been ruled out. Stress cardiomyopathy is possible but seems less likely. - Heparin drip, cardiac protocol - Plavix - Aspirin - Atorvastatin 80mg PO daily at bedtime - Recurrent chest pain call cardiology then Morphine PRN - avoid nitrates due to headache and nausea - NPO after midnight for cath on 02/15 Add metoprolol, cardiac cath today. 2. Headache, POA, likely secondary to Nitropaste - Resolved 3. Chronic Diarrhea, POA, stable, patient is followed closely by a GI doctor in [place] for her microscopic collitis. She did report possible melena in the ER, but heme occult test was negative. - Stable 4. Hypokalemia, POA, potassium 3.1 on admission, repleted once in the ED with 40meq PO, second lab in normal limits, 3.7 - K/Mg repletion protocol in place PRN medications available for nausea, heartburn, constipation: Ondansetron, Maalox, Senna, Miralax Patient is admitted under inpatient status with expected length of stay greater than 2 midnights due to severity of presenting symptoms, risk of adverse event, and complexity of treatment plan. GI Prophylaxis: Not indicated VTE Prophylaxis: SCDs, Other (Heparin drip, cardiac protocol) VTE Mechanical Devices: Intermittant Pneumatic CD Resuscitation Status: CPR: Attempt Resuscitation Maurice Purcell MD Feb 15, 2017 10:55
--- NOTE | 2017-02-15 13:44 | NUR ---
P: Hemodynamics, Pain, Social I,E: Pt has been normotensive this shift, she is in SR in the 60's. Pt has not complained of any chest discomfort this shift. She did request tylenol for a headache and this was effective in relieving her pain. Her is at the bedside and is great comfort. Pt was complaining of anxiety and ativan was given with good effect. Pt is NPO waiting to go to the [facility] programmer at this time. Ed. booklet on angioplasty/stent was given to pt and her to read.
[2017-02-15] MEDS ORDERED: 0.9% Sodium Chloride 1,000 ML ONE (15:06)
[2017-02-15] MEDS ORDERED: Heparin 1,000 Units/500 mL NS Premix IV ONE ×2 (15:06→15:36)
[2017-02-15] MEDS ORDERED: Heparin 5,000 Units/500 mL NS Premix IV ONE ×2 (15:06→15:36)
[2017-02-15] MEDS ORDERED: Nitroglycerin 50,000 mcg/250 mL D5W Premix IV ONE ×2 (15:36→15:37)
[2017-02-15] MEDS ORDERED: Heparin 1,000 Unit/mL 10 mL Inj ONE (16:00)
[2017-02-15] MEDS ORDERED: fentaNYL-PF 50 mCg/mL 2 mL Inj ONE (16:12)
--- NOTE | 2017-02-15 16:14 | NUR ---
Pt to laboratory scientist at 1600hrs Pt went to laboratory scientist, and will be recovered in [facility] prior to returning to [facility]. was with her and went to the waiting area specified by cath team.
--- NOTE | 2017-02-15 17:32 | NUR ---
Received Received from labor mediator at 1710. VSS. Right groin stable without bleeding or hematoma. Denied pain initially but states 1-2/10 right sided chest pressure. Report stated occlusion in very small artery that could not be intervened on with some abnormal wall motion. Tele SR low 60's. SBP low 100's. Continue to monitor discomfort and per orders. Groin precautions reviewed. Verbalizes understanding. IVF infusing per orders. Continue to monitor.
[2017-02-15] MEDS ORDERED: 0.9% Sodium Chloride 1,000 ML IV ONE (18:55)
[2017-02-15] MEDS ORDERED: 0.9% Sodium Chloride 250 ML BOLUS IV PRN (18:55)
[2017-02-15] MEDS ORDERED: Ondansetron 2 mg/mL 2 mL Inj IVPUSH PRN (18:55)
[2017-02-15] MEDS ORDERED: Sodium Chloride LOK Flush 10 mL Syringe IVFLUSH PRN (18:55)
[2017-02-15] MEDS ORDERED: Atropine 1 mg/10 mL (Code) Syringe IVPUSH PRN (18:55)
--- NOTE | 2017-02-15 19:10 | CS94 ---
[address] [address] DIAGNOSTIC CARDIAC CATHETERIZATION PATIENT: VERITO PIERRE : 1970 MR#: [id number] ADMIT: 02/14/2017 JOB ID: [id number] PROCEDURE NOTE - - CARDIAC CATHETERIZATION LABORATORY: SERVICE DATE: Wednesday, February 15, 2017 CARDIAC HAIR OR BEAUTY SALON MANAGER: Júnior Smith MD PROCEDURES: 1. Coronary angiogram -- urgent. 2. Left heart catheterization (LHC)--pressure measurements; and left ventriculogram (LVG). CLINICAL DETAILS: This 46-year-old woman who has no prior history of heart disease (except said to have mitral valve prolapse found on a remote prior echo because of a murmur) presented to the hospital with first episode of sudden onset of severe retrosternal chest pressure radiating to the right scapular area. Troponin was initially negative but then became elevated to 0.505. ECG was not clearly outside normal limits with the exception of initial equivocal inferolateral ST flattening. Echocardiogram showed intact global LV systolic function; but there is a distal anteroapical region of hypokinesis. Underlying coronary risk factors include family history of premature coronary disease (father had stroke in the 6th decade); and she stopped cigarettes seven years ago. The clinical working diagnosis was NSTEMI. Chest CT angiogram showed no pulmonary embolus; and no dissection of aorta. PROCEDURAL DETAILS: I discussed the findings, impressions and management considerations with her and her prior to the procedure. We discussed the recommendation to proceed with urgent coronary angiogram for definitive diagnosis and to guide treatment decisions including medical therapy, percutaneous coronary intervention or coronary bypass if needed. We discussed the procedure including possible risks and complications. We discussed bleeding, infection, blood clots; as well as injury to nerve, artery, vein or kidney; and also arrhythmia, drug reaction; or others. We discussed treatment as needed including surgery, pacemaker, transfusion. We discussed more serious complications that are possible including stroke, heart attack, cardiac arrest, and emergency surgery including transfer for coronary bypass surgery. After discussion and questions, she signed informed consent to proceed. She was brought to the cardiac catheterization laboratory where she was prepped sterilely and draped. Conscious sedation was used. She had been treated with aspirin 324 mg chewed initially; and heparin IV infusion; as well as with loading dose of Plavix 300 mg p.o. 24 hours earlier. CORONARY ANGIOGRAM: Arterial access was obtained without difficulty in the right common femoral artery using fluoroscopic localization over the femoral head and modified Seldinger technique to insert a 10 cm 6-Rwandan side-arm sheath. Catheters were advanced and exchanged over a long 0.035 inch J tipped guidewire. The left coronary artery was engaged with a 6-Rwandan JL-4 diagnostic catheter. Then, the right coronary was engaged with a 6-Rwandan JR-4 catheter. LHC: A 6-Rwandan pigtail catheter was advanced retrograde across the aortic valve into the left ventricle to measure pressures and to obtain left ventriculogram (LVG) in the 30 degree LIU projection using 33 cc of contrast injected at 12 cc/minute. Procedure without difficulty. Patient tolerated procedure well. No complications. A side-arm sheath angiogram shows adequate access in the right common femoral artery for a closure device. Arterial hemostasis is obtained without difficulty using a 6-Rwandan Star Close clip. The patient is transferred pain free and in stable condition from the catheterization laboratory to the [facility] unit for post catheterization care. I discussed the procedure findings and management considerations with the patient and her ; and with the primary hospitalist team. FINDINGS: 1. LMCA: Intact. The left main coronary artery has no lesions or even angiographic evident arterial sclerotic plaquing. 2. LAD: Intact. The left anterior descending coronary artery is a large transapical vessel; and its distribution includes an early large branching diagonal. The LAD itself is without evident angiographic obstruction or atherosclerotic plaquing. Diagonal -- the diagonal tapers in its mid portion but there is no definite angiographic obstruction. A small inferior branch of the multi branching diagonal appears to give rise to a small collateral vessel heading in the direction of the circumflex territory. 3. LCX: Intact. The left circumflex coronary artery distribution includes a large early obtuse marginal branch that nearly reaches the apex. There is no definite evident occlusion or stump that correlates with the apparent collateral filling coming from the LAD diagonal. 4. RCA: Dominant. Intact. The right coronary artery has a small to moderate-sized PDA; and a moderate-sized posterolateral branch. On one view there may be a faint test hint of collaterals from the PDA to the circumflex territory; but not definite. 5. LHCH. LVED 23 mmHg; and no systolic gradient across the aortic valve on pullback. 6. LVG: Normal left ventricular size and preserved global systolic function with calculated ejection fraction 61%. No mitral regurgitation. Mitral valve prolapse not excluded at the inferior border of the mitral annulus. Wall motion is intact except for a moderate sized area of mid and distal anterior hypokinesis; but the apex is intact. CONCLUSIONS: 1. Coronary angiogram -- intact without angiographic obstruction of the major coronary arteries; and almost no angiographic evidence of atherosclerotic plaquing; but there is a strong suggestion of an occluded artery in the circumflex territory that is very small and fills by collaterals from the distal diagonal branch. 2. ACS (acute coronary syndrome) -- NSTEMI. 3. Elevated LVED. COMMENT: The clinical scenario includes NSTEMI. The angiogram is overall reassuring for the absence of significant atherosclerotic lesions. The overall clinical picture suggests there was occlusion of a small branch likely in the circumflex territory with collaterals from the diagonal. There is a wall motion defect seen on echo and also on left ventriculogram that correlates with this territory. CONCLUSIONS: OMT -- guideline directed optimal medical therapy for CAD including aspirin, Plavix for one year for ACS; statin; and beta-rosalia.
--- NOTE | 2017-02-15 19:24 | NUR ---
Recovery/Transfer Chest pressure resolved spontaneously. Dr. Smith notified and agreed with current plan. VS and groin unchanged. Report to Rosmery Diggs at 1830. Transported to 2014 at 1910 via bed in no distress.
--- NOTE | 2017-02-16 | NUR ---
Received from [facility] to [facility] Patient transferred from [facility] to [facility] @ 1920 s/p diagnostic LHC, Rt groin site w/ CDI drsg, no bleeding, no hematoma, pt off bedrest, distal pulses are palpable, SB-NSR, BP stable, pt completed IVF @ 100 cc/hr x 4 hrs infusion and drinking adequate fluids. IV changed to SL. Pt OOB to BR independently, tolerated ambulation well. updated with POC.
[2017-02-16 00:05] VITALS: BP 100/61; PULSE 70; RESP 16; O2SAT 98
[2017-02-16 03:18] LABS: Mean Corpuscular Hemoglobin 30.1 pg (27.0-35.0); Mean Corpuscular Volume 94.8 fL (81-100)
[2017-02-16 04:16] VITALS: BP 108/69; PULSE 71; RESP 16; O2SAT 97
[2017-02-16 07:43] VITALS: BP 106/59; PULSE 65; RESP 19; O2SAT 98
[2017-02-16] MEDS: Sodium Chloride LOK Flush 10 mL Syringe IVFLUSH SCH ×2 (07:56→07:59)
[2017-02-16 08:00] VITALS: PULSE 69
--- NOTE | 2017-02-16 10:26 | PCM.DIMED ---
Discharge Instructions Date of Service Feb 16, 2017 Dates of Hospitalization Feb 14, 2017 at 02:09 Discharge Diagnosis Discharge Diagnosis 1. NSTEMI (small heart attack) 2. Hypokalemia, improved. Diet Heart Healthy Activity Limited until seen by PCP Call your provider Shortness of breath, Chest pain Patient Instructions Call 911 immediately for severe shortness of breath or chest pain. Follow-up Provider: Yady Tello MD Follow-up with PCP in: 3 weeks Provider: Wendy Castellanos Follow-up in: 2 weeks Maurice Purcell MD Feb 16, 2017 10:26
[2017-02-16] MEDS ORDERED: ATOR40TA69 PO (10:29)
[2017-02-16] MEDS ORDERED: METO25TA99 PO (10:29)
[2017-02-16] MEDS ORDERED: ASPI-973 PO (10:29)
[2017-02-16] MEDS ORDERED: CLOP75TA28 PO (10:29)
[2017-02-16 11:04] VITALS: BP 123/57; PULSE 71; RESP 21; O2SAT 99
--- NOTE | 2017-02-16 14:50 | PROG NOTE ---
[address] [address] PROGRESS NOTE PATIENT: VERITO PIERRE : 1970 MR#: [id number] ADMIT: 02/14/2017 JOB ID: [id number] DATE: 02/16/2017 CARDIOLOGY CONSULT PROGRESS NOTE -- FOLLOWUP INPATIENT VISIT: DATE OF EVALUATION: January. CONSULTING PHYSICIAN: Cardiology -- Júnior Smith MD. PROBLEMS: 1. Acute coronary syndrome (ACS): a. Chest pain -- typical of ischemia. b. Elevated troponin of 0.5. c. Electrocardiogram -- only subtle changes. d. Catheterization -- faint collaterals from diagonal to a thready vessel probably representing occluded obtuse marginal. e. Wall motion defect -- anteroapical wall motion defects seen on echo and left ventriculogram. 2. Question of mitral prolapse. HOSPITAL COURSE AND INTERIM PROGRESS (HOSPITAL DAY FOUR): I saw this 46-year-old woman in the PCU unit on cardiology rounds today, January. She was admitted late on February 13 with severe chest discomfort that has resolved. ECG was not clearly outside normal limits except for subtle possible transient inferior ST flattening that was nondiagnostic and nonspecific. Troponin, however, was clearly modestly elevated at 0.505. Echocardiogram showed a mid and distal anterior/anterolateral wall motion defect (hypokinesis). CT angiogram of the chest did not show pulmonary embolism or aortic dissection. Diagnostic coronary angiogram was done yesterday. Her coronaries appeared normal --- including even no evident atherosclerotic plaquing -- with the exception of a faintly visualized vessel that appears to be a collateral from the terminal portion of a large diagonal reaching in the direction of the circumflex. It may even be possible to faintly (but not unequivocally) visualize threads of an occluded branching OM. Otherwise, there is no clear coronary abnormality. The left ventriculogram shows a definite mid and distal anterior wall motion defect in the LIU view. This morning she is stable. She is overall pain free, although she notes today ongoing 0-1 or 2/10 chest sensation that continues. She has been well after the catheterization with no difficulty in the right groin StarClose site. She has ambulated without difficulty. Vital signs and urine output have been good. EXAMINATION: Heart: I was convinced of a definite mid systolic click on my initial examination (with no murmur). Today, I hear S4 but no clicking including with hand drilling contractor and squatting/standing maneuvers. The echocardiogram showed no prolapse at the time the echo was done. The LV angiogram suggests posterior prolapse but no MR. The right lower extremity is fully intact at the StarClose site without ecchymosis, hematoma, pulsatile mass, or audible bruit; full DP/PT pulses at the right foot. ELECTROCARDIOGRAM: Interestingly, the electrocardiogram today is subtly, but definitely, changed now with changes in L1 and aVL that include subtle ST coving with mild T-wave inversion that could be consistent with the overall clinical impression of anterolateral injury. ASSESSMENT: I discussed the findings, impressions, hospital course and management considerations at length with her, her yesterday, a family friend and again in an additional session with her mother (critical care nurse) who arrived from [place] today; and with the Hospitalist team includin. Acute coronary syndrome: I explained to them that although there are several subtle and atypical features of the case, the overall impression is that she clearly had chest pain consistent with ischemia, as well as elevated troponin documenting myocardial injury and wall motion defect on both echocardiogram and left ventriculogram, all of which are consistent with a coronary event; and our workup showed no other alternative cause. She is clinically stable. I recommend medical therapy. There is clearly no target for revascularization at this time. I told them I anticipate she will do very well, although she needs followup including if she does have further symptoms. We had a long "post myocardial infarction" discussion including regarding her prognosis, which I think is favorable, especially in the face of normal left ventricular function and no lesions of major coronary arteries and a stable anatomy with no current lesions. We discussed medicines including lifetime aspirin, Plavix for one year after acute coronary syndrome; statin; and beta-rosalia. She had some trouble with a prior statin but she does not know which one. We picked a modest dose of atorvastatin with that in mind, and recommended followup for myalgias. We talked about the risk of bleeding with aspirin and Plavix. She wondered if her blood pressure would be low on the metoprolol, and I recommended to start with a low dose and follow carefully. I did not initiate angiotensin-converting enzyme inhibitor at this time. We discussed activity prescription to include moderate common sense, stepwise and symptom-limited return to her normal activities. She is vigorously active at her aerobics; but I anticipate that she is likely to return to full activity without difficulty; and she knows to followup especially if any trouble. I strongly recommended a cardiac rehab program, if possible. We discussed lifestyle including "Life's Simple 7"; especially emphasized to not return to smoking, which she stopped seven years ago. I have discussed followup including early return to primary physician in several days; and to cardiology clinic in 7-10 days. She knows not to lift over 10 pounds for a week to let the catheterization site heal. I recommended that she have primary care and cardiology specialty followup when she moves to [facility] this summer. We had a long discussion and answered their questions at length. 2. Mitral prolapse: She may have mitral valve prolapse. I discussed with her that this is not a diagnosis that should impact her prognosis significantly. RECOMMENDATIONS: 1. Discharge home today. 2. Close and early followup with primary physician; and with Cardiology. 3. OMT -- guideline-directed optimal medical therapy as noted above. 4. Strong recommendation for cardiac rehab. 5. Although I do not anticipate angina, would consider myocardial perfusion scan if she develops exertional chest discomfort.
--- NOTE | 2017-02-16 14:52 | NUR ---
Discharge Patient was discharge home in stable condition. Patient ambulated in hallways for about 20min and tolerated the activity well. She denied having any chest pain, shortness of breath or discomfort. Prior to discharge patient requested to speak with a physician regarding her procedure and discharge. Attending haulage engine operator was made aware and was able to consult with the patient and patients mother present at the time in the room. Patient and family verbalized understanding of verbal and written home instructions regarding groin care, medications, activity, diet, follow up appointments, when to call 911/ seek immediate help. IV x2 were removed intact prior to discharge patient ambulated to her mothers car accompanied by her mother and by staff member.
--- NOTE | 2017-02-16 15:09 | PCM.DC.MED ---
Discharge Summary Date of Service Feb 16, 2017 Dates of Hospitalization Date of Hospital Admission Feb 14, 2017 at 02:09 Date of Discharge: Feb 16, 2017 Providers: Admitting Physician: Kike Salinas MD Primary Care Physician: Wendy Castellanos Attending Physician: Kike Salinas MD Diagnosis at Time of Discharge Diagnosis at Time of Discharge 1. NSTEMI (small heart attack) 2. Hypokalemia, improved. Consultations Cardiology, Dr. Smith Procedures XRay, CTs & MRIs PROCEDURE: CT ANGIO CHEST PULMONARY EMBOLISM ([id number]) IMPRESSION: 1. No pulmonary embolus. 2. No acute process. 3. 3 mm diameter left upper lobe nodule; followup is recommended as below. Fleischner Society criteria for SOLID lung nodule followup. Nodule size (mm) Low-risk patient High-risk patient<6 (single or multiple) No routine followup. Optional CT at 12 months. Dictated by: Wojciech Argueta M.D. on 02/14/2017 at 13:56 ECG 12 Lead EKG x2 reveals NSR without ST changes or any other signs of ischemia, rate of 79 Cardiac Echo Impression Echocardiogram Report Name: VERITO PIERRE Study Date: 02/14/2017 Interpretation Summary 1. Normal left ventricular size, wall thickness and systolic function with an estimated EF of 60-65% with wall motion abnormalities as noted below. 2. Normal right ventricular size and systolic fucntion. 3. No evidence for valvular pathology Left Ventricle: The left ventricle is normal in size. There is normal left ventricular wall thickness. The ejection fraction is estimated to be 60-65%. Possible hypokinesis of the distal lateral/inferolateral wall. Right Ventricle: The right ventricle is normal in size and function. . Invasive Procedures FINDINGS: 1. LMCA: Intact. The left main coronary artery has no lesions or even angiographic evident arterial sclerotic plaquing. 2. LAD: Intact. The left anterior descending coronary artery is a large transapical vessel; and its distribution includes an early large branching diagonal. The LAD itself is without evident angiographic obstruction or atherosclerotic plaquing. Diagonal -- the diagonal tapers in its mid portion but there is no definite angiographic obstruction. A small inferior branch of the multi branching diagonal appears to give rise to a small collateral vessel heading in the direction of the circumflex territory. 3. LCX: Intact. The left circumflex coronary artery distribution includes a large early obtuse marginal branch that nearly reaches the apex. There is no definite evident occlusion or stump that correlates with the apparent collateral filling coming from the LAD diagonal. 4. RCA: Dominant. Intact. The right coronary artery has a small to moderate-sized PDA; and a moderate-sized posterolateral branch. On one view there may be a faint test hint of collaterals from the PDA to the circumflex territory; but not definite. 5. LHCH. LVED 23 mmHg; and no systolic gradient across the aortic valve on pullback. 6. LVG: Normal left ventricular size and preserved global systolic function with calculated ejection fraction 61%. No mitral regurgitation. Mitral valve prolapse not excluded at the inferior border of the mitral annulus. Wall motion is intact except for a moderate sized area of mid and distal anterior hypokinesis; but the apex is intact. CONCLUSIONS: 1. Coronary angiogram -- intact without angiographic obstruction of the major coronary arteries; and almost no angiographic evidence of atherosclerotic plaquing; but there is a strong suggestion of an occluded artery in the circumflex territory that is very small and fills by collaterals from the distal diagonal branch. 2. ACS (acute coronary syndrome) -- NSTEMI. 3. Elevated LVED. COMMENT: The clinical scenario includes NSTEMI. The angiogram is overall reassuring for the absence of significant atherosclerotic lesions. The overall clinical picture suggests there was occlusion of a small branch likely in the circumflex territory with collaterals from the diagonal. There is a wall motion defect seen on echo and also on left ventriculogram that correlates with this territory. CONCLUSIONS: OMT -- guideline directed optimal medical therapy for CAD including aspirin, Plavix for one year for ACS; statin; and beta-rosalia. Brief History 46yo woman with history of microscopic colitis, chronic diarrhea, significant intentional weight loss, distant smoking hx, presented to the ED via EMS with substernal chest pain onset at about 9pm. The pain is described as "pressure" and "aching," rated 7/10 with radiation up to her jaw. Associated symptoms included nausea, diaphoresis, and SOB which have since resolved. EMS found the patient with a BP of 111/69 and a pulse in the 70s. She was given Nitro x3 and 324mg ASA en route, which reduced her pain to a 3/10. At time of admit her pain had resolved to minor chest pressure and a headache. Hospital Course 46yo woman with history of microscopic colitis, chronic diarrhea, significant intentional weight loss, distant smoking hx (28 years at 1.5 packs per day, stopped 7 years ago), presented substernal chest pain onset at rest, then p.m. on evening of admission. The pain is described as "pressure" and "aching," rated 7/10 with radiation up to her jaw. Associated symptoms included nausea, diaphoresis, and SOB. As is her first episode of these symptoms. She is ordinarily able to perform intense aerobic workouts with no chest pain. 1. NSTEMI, POA, with rising troponin, 0.010 to 0.309 to 0.505, nml EKGs, pain resolved with nitroglycerin. SUSAN score is 1-2 (troponin, possibly EKG changes) . Pulmonary embolism with cardiac strain is been ruled out. Stress cardiomyopathy is possible but seems less likely. - Heparin drip, cardiac protocol - Plavix - Aspirin - Atorvastatin 80mg PO daily at bedtime - Recurrent chest pain call cardiology then Morphine PRN - avoid nitrates due to headache and nausea - NPO after midnight for cath on 02/15 Add metoprolol, cardiac cath today. 2. Headache, POA, likely secondary to Nitropaste - Resolved 3. Chronic Diarrhea, POA, stable, patient is followed closely by a GI doctor in [place] for her microscopic collitis. She did report possible melena in the ER, but heme occult test was negative. - Stable 4. Hypokalemia, POA, potassium 3.1 on admission, repleted once in the ED with 40meq PO, second lab in normal limits, 3.7 - K/Mg repletion protocol in place PRN medications available for nausea, heartburn, constipation: Ondansetron, Maalox, Senna, Miralax Patient is admitted under inpatient status with expected length of stay greater than 2 midnights due to severity of presenting symptoms, risk of adverse event, and complexity of treatment plan. Patient presented with acute severe chest pain. She elevated troponin. She was taken to the coronary catheterization lab where she was found to have a probable OM occlusion but otherwise normal coronary arteries. Her chest pain did resolve with medical management and treatment. Ultimately she was seen by Dr. Smith on the day of discharge and recommendations for standard cardioprotective therapy were made. She will be discharged on beta blockade, dual antiplatelets as well as simvastatin. She will follow-up with cardiology. Exam Vital Signs (Last) Date Time Temp Pulse Resp B/P Pulse Ox O2 Delivery O2 Flow Rate FiO2 02/16/17 11:04 36.8 71 21 123/57 99 Room Air Exam Patient is seen and examined on the day of discharge Test 02/13/17 22:30 02/14/17 03:02 02/14/17 08:53 02/15/17 04:09 Hold Purple Top Tube Received (Received) Hold Blue Top Tube Received (Received) Total Bilirubin 0.2mg/dL (0.0-1.2) Aspartate Amino Transf (AST/SGOT) 23U/L (0-50) Alanine Aminotransferase (ALT/SGPT) 33U/L (0-32) Alkaline Phosphatase 58U/L (25-150) Total Protein 6.8g/dL (6.4-8.4) Albumin 4.4g/dL (3.4-5.0) Hold Red Top Tube Received (Received) Hold [place] Top Tube Received (Received) Magnesium Level 1.8mg/dL (1.6-2.6) Triglycerides Level 34mg/dL (0-149) Cholesterol Level 173mg/dL (100-199) LDL Cholesterol, Calculated 109.200mg/dL (0-99) VLDL Cholesterol 6.800mg/dL HDL Cholesterol 57mg/dL (>39) Cholesterol/HDL Ratio 3.04 (0.0-4.4) Thyroid Stimulating Hormone (TSH) 1.870uIU/mL (0.450-4.500) Human Chorionic Gonadotropin, Qual 2.26 (Negative) Troponin T 0.272ug/L (0.0-0.011) Neutrophils (%) (Auto) 46.2% (40-74) Lymphocytes (%) (Auto) 37.6% (14-46) Monocytes (%) (Auto) 11.1% (4-12) Eosinophils (%) (Auto) 4.2% (0-5) Basophils (%) (Auto) 0.6% (0-3) Test 02/15/17 10:14 02/16/17 02:53 Activated Partial Thromboplast Time 133.3sec (22.8-33.0) White Blood Count 7.6th/mm3 (3.8-10.1) Red Blood Count 3.49mil/mm3 (3.90-5.20) Hemoglobin 10.5g/dL (12.0-15.6) Hematocrit 33.1% (35.0-46.0) Mean Corpuscular Volume 94.8fL (81-100) Mean Corpuscular Hemoglobin 30.1pg (27.0-35.0) Mean Corpuscular Hemoglobin Concent 31.7% (32.0-37.0) Red Cell Distribution Width 12.5% (12.3-15.4) Platelet Count 211bil/L (150-400) Sodium Level 142mEq/L (134-144) Potassium Level 3.7mEq/L (3.5-5.2) Chloride Level 107mEq/L (97-108) Carbon Dioxide Level 24mmol/L (18-29) Blood Urea Nitrogen 14mg/dL (6-24) Creatinine 0.55mg/dL (0.57-1.00) Estimat Glomerular Filtration Rate 170mL/min (>59) Glucose Level 95mg/dL (60-99) Calcium Level 8.0mg/dL (8.5-10.1) Discharge Medications Discharge Medications Ampicillin Trihydrate (Ampicillin Trihydrate) 500 Mg Capsule 500 MG PO HS ( Reported) Aspirin (Aspirin) 81 Mg Tablet 81 MG PO DAILY Prescribed by: MAURICE OLIVAREZ MD Atorvastatin Calcium (Atorvastatin Calcium) 40 Mg Tablet 40 MG PO DAILY Prescribed by: MAURICE OLIVAREZ MD Citalopram (Citalopram) 20 Mg Tablet 60 MG PO HS (Reported) Clopidogrel (Clopidogrel) 75 Mg Tablet 75 MG PO DAILY Prescribed by: MAURICE OLIVAREZ MD Metoprolol Succinate ER (Metoprolol Succinate ER) 25 Mg Tab.er.24h 25 MG PO DAILY Prescribed by: MAURICE OLIVAREZ MD Varenicline Tartrate (Chantix) 1 Mg Tablet 1 MG PO DAILY (Reported) As needed Clonazepam (Clonazepam) 0.5 Mg Tablet 0.5 MG PO DAILY PRN PRN For Anxiety ( Reported) Ipratropium [place] (Ipratropium [place] 0.03% Nasal) 30 Ml [place] 2 SPRAY NASAL TID PRN PRN nasal congestion (Reported) Zolpidem ER (Zolpidem ER) 6.25 Mg Tablet 6.25-12.5 MG PO HS PRN PRN For Sleep ( Reported) Followup Plan Disposition: Home Discharge Diet: Heart Healthy Discharge Activity: Limited until seen by PCP Patient Instructions Call 911 immediately for severe shortness of breath or chest pain. Follow-up Provider: Yady Tello MD Follow-up with PCP in: 3 weeks Provider: Wendy Castellanos Follow-up in: 2 weeks Time spent 45 minutes Maurice Olivarez MD Feb 16, 2017 15:09
--- NOTE | 2017-02-16 19:43 | NUR ---
POST DISCHARGE PHONE CALL [phone] PT called stated she was at home and was reading her information and saw [employer] device printed information,which discusses allergy to stephen. PT states she has reaction to stephen and is concerned. Referred her to her physician in the AM, I did agree to try and contact Dr Smith. Called DR Smith , he wants pt to follow up with Dr House and make sure she has a discussion about it with her. He felt she should be fine. Called pt back at home on her cell [phone] and made sure pt understood the instructions.
== END 2017-02-16 13:25 | disposition home or self-care (01) | DRG 282 ==
LOC: EDBD 22:29 → SED 22:29 → PCC 02-14 02:09
PROVIDERS: ADMIT Hospitalist; ATTEND Hospitalist
PROC: 4A023N7 Measurement of Cardiac Sampling and Pressure, Left Heart, Percutaneous Approach (ICD-10-PCS; principal; 2017-02-15)
PROC: B2111ZZ Fluoroscopy of Multiple Coronary Arteries using Low Osmolar Contrast (ICD-10-PCS; 2017-02-15)
PROC: B2151ZZ Fluoroscopy of Left Heart using Low Osmolar Contrast (ICD-10-PCS; 2017-02-15)
DX: I21.4 Non-ST elevation (NSTEMI) myocardial infarction (principal); E87.6 Hypokalemia; K52.9 Noninfective gastroenteritis and colitis, unspecified; Z82.3 Family history of stroke; Z87.891 Personal history of nicotine dependence; Z79.82 Long term (current) use of aspirin